=== PATIENT | male | born 1975 | race Caucasian/White ===

== ENCOUNTER → 2016-08-05 | Day surgery (SDC) | payer OTHER ==
[~2016-08-05] MED LIST: 24HOUR ALLERGY10 MG PO; BACLOFEN10 MG PO; BUDESONIDE EC3 MG PO; BUSPIRONE HCL15 MG PO; CARDIZEM CD180 MG PO; DELZICOL400 MG PO; DEPAKOTE ER500 MG PO; HUMIRA40 MG/0.1 SQ; LEVAQUIN500 MG PO; METRONIDAZOLE500 MG PO; MUCINEX 600MG600 MG PO; NEURONTIN400 MG PO; OMEPRAZOLE40 MG PO; VITAMIN D5000 UNIT PO
== END | disposition home or self-care (01) ==
LOC: FAS 11:54
DX: K51.90 Ulcerative colitis, unspecified, without complications (principal); K21.9 Gastro-esophageal reflux disease without esophagitis; J44.9 Chronic obstructive pulmonary disease, unspecified; Z79.899 Other long term (current) drug therapy; Z98.890 Other specified postprocedural states; Z87.891 Personal history of nicotine dependence
CPT/HCPCS: 88305; J2704

== ENCOUNTER 2021-02-08 15:02 | Emergency (ER) | payer OTHER ==
[~2021-02-08 15:02] MED LIST changes: +AZATHIOPRINE50 MG PO; +BACLOFEN 10MG T10 MG PO; +BENZTROPINE MESY1 MG PO; +KLONOPIN0.5 MG PO; +LIPITOR20 MG PO; +NORCO 5-325 TA1 EACH PO; +PRILOSEC20 MG PO; +SULFAMETHOXAZO1 EACH PO; +VRAYLAR4.5 MG PO; +ZOFRAN4 MG PO
[2021-02-08 17:33] LABS: BILIRUBIN NEGATIVE (NEGATIVE); BLOOD NEGATIVE Ery/uL (NEGATIVE); CLARITY CLEAR (CLEAR); COLOR YELLOW (YELLOW); GLUCOSE (U) NORMAL (NORMAL); LEUKOCYTES 1+ Leu/uL (NEGATIVE); NITRITE NEGATIVE (NEGATIVE); PROTEIN NEGATIVE (NEGATIVE); SPECIFIC GRAVITY 1.025 (1.001-1.030); UROBILINOGEN 0.2 mg/dL (0.2-1.0)
[2021-02-08 17:44] LABS: BACTERIA 1+; MUCOUS MODERATE
== END 2021-02-08 17:50 | disposition left against medical advice (07) ==
LOC: FER 15:02
PROVIDERS: Emergency Medicine
DX: N39.0 Urinary tract infection, site not specified (principal); F17.290 Nicotine dependence, other tobacco product, uncomplicated; Z53.8 Procedure and treatment not carried out for other reasons; Z88.0 Allergy status to penicillin; Z88.6 Allergy status to analgesic agent; Z88.5 Allergy status to narcotic agent; Z88.8 Allergy status to other drugs, medicaments and biological substances; Z88.1 Allergy status to other antibiotic agents
CPT/HCPCS: 81001; 99284

== ENCOUNTER 2021-10-12 21:43 | Emergency (ER) | payer OTHER ==
[2021-10-12 22:08] LABS: BASOPHIL 0.2 % (0-2); EOSINOPHIL 0.2 % (0-5); HGB 14.2 g/dl (13.2-18.0); LYMPHOCYTE 19.7 % (15-48); MCH 32.6 pg (25.0-31.0); MCHC 33.8 g/dL (32.0-36.0); MCV 96.3 fL (78.0-100.0); MONOCYTE 11.6 % (0-12); MPV 10.9 fL (6.0-9.5); NEUTROPHIL 67.2 % (41-80); NRBC 0.4; PLT 192 K/uL (150-400); RBC 4.36 M/uL (4.70-6.00); RDW 15.8 % (11.5-14.0); WBC 5.5 K/uL (4.0-10.5)
[2021-10-12 22:25] LABS: INR 1.03 (0.9-1.2); PROTHROMBIN TIME 13.2 SECONDS (11.9-13.9); PTT 28.7 SECONDS (24.9-34.6)
[2021-10-12 22:30] LABS: ALBUMIN 3.8 g/dL (3.4-5.0); BILIRUBIN - TOTAL 0.4 mg/dL (0.2-1.0); BUN/CREAT RATIO (CALC) 14.4 RATIO; CREATININE 0.9 mg/dL (0.67-1.17); TOTAL PROTEIN 6.8 g/dL (6.4-8.2)
== END 2021-10-13 01:07 | disposition home or self-care (01) ==
LOC: FER 21:43
PROVIDERS: Internal Medicine
DX: R07.89 Other chest pain (principal); I25.10 Atherosclerotic heart disease of native coronary artery without angina pectoris; I48.91 Unspecified atrial fibrillation; J44.9 Chronic obstructive pulmonary disease, unspecified; Z95.5 Presence of coronary angioplasty implant and graft; Z87.891 Personal history of nicotine dependence; Z88.0 Allergy status to penicillin; Z88.6 Allergy status to analgesic agent; Z79.899 Other long term (current) drug therapy
CPT/HCPCS: 36415; 71045; 80053; 83690; 84484; 85025; 85379; 85610; 85730; 93005; J3475

== ENCOUNTER 2021-11-20 23:20 | Emergency (ER) | payer OTHER ==
[2021-11-21 00:37] LABS: BASOPHIL 0.5 % (0-2); EOSINOPHIL 1.5 % (0-5); HCT 44.6 % (42.0-52.0); HGB 15.1 g/dl (13.2-18.0); LYMPHOCYTE 36.6 % (15-48); MCHC 33.9 g/dL (32.0-36.0); MCV 97.6 fL (78.0-100.0); MONOCYTE 14.3 % (0-12); MPV 10.8 fL (6.0-9.5); NEUTROPHIL 46.8 % (41-80); NRBC 0; PLT 208 K/uL (150-400); RBC 4.57 M/uL (4.70-6.00); RDW 14.8 % (11.5-14.0); WBC 6.5 K/uL (4.0-10.5)
[2021-11-21 00:55] LABS: ALBUMIN 3.3 g/dL (3.4-5.0); BILIRUBIN - TOTAL 0.3 mg/dL (0.2-1.0); BUN/CREAT RATIO (CALC) 11.9 RATIO; CREATININE 0.84 mg/dL (0.67-1.17); GLOBULIN (CALCULATION) 3.6 g/dL; POTASSIUM 3.9 mmol/L (3.5-5.1); TOTAL PROTEIN 6.9 g/dL (6.4-8.2)
[2021-11-21 01:29] LABS: BILIRUBIN NEGATIVE (NEGATIVE); BLOOD NEGATIVE Ery/uL (NEGATIVE); CLARITY CLEAR (CLEAR); COLOR YELLOW (YELLOW); GLUCOSE (U) NORMAL (NORMAL); LEUKOCYTES NEGATIVE Leu/uL (NEGATIVE); NITRITE NEGATIVE (NEGATIVE); PROTEIN NEGATIVE (NEGATIVE)
[2021-11-21] MEDS ORDERED: FLAGYL500 MG PO (03:14)
[2021-11-21] MEDS ORDERED: TRAMADOL HCL50 MG PO ×2 (03:14→03:26)
[2021-11-21] MEDS ORDERED: METRONIDAZOLE500 MG PO (03:26)
== END 2021-11-21 03:31 | disposition home or self-care (01) ==
LOC: FER 23:20
PROVIDERS: Emergency Medicine
DX: K52.9 Noninfective gastroenteritis and colitis, unspecified (principal); F17.290 Nicotine dependence, other tobacco product, uncomplicated; Z88.1 Allergy status to other antibiotic agents; Z88.6 Allergy status to analgesic agent; Z88.8 Allergy status to other drugs, medicaments and biological substances
CPT/HCPCS: 36415; 80053; 81003; 82150; 83690; 85025; J2270; J2405; J7030; Q9967